=== PATIENT | female | born 1980 | race Caucasian/White ===

== ENCOUNTER 2016-11-06 15:40 | Inpatient (IN) | payer OTHER ==
[2016-11-06] MEDS ORDERED: TUBERCULIN PPD 5 TU/0.1ML SYRINGE (IN PATIENT USE ONLY) ID ONE (16:16)
[2016-11-06] MEDS ORDERED: DINOPROSTONE 10 MG VAGINAL SUPPOSITORY VG ONE (16:19)
--- NOTE | 2016-11-06 16:39 | HP ---
Past Medical History - Primary Care Physician PCP:: Ilsa Rodriguez - Admission Chief Complaint: induction due to AMA and Unilateral hydronephrosis History of Present Illness: 36 yo admitted for induction of labor due to AMA & unilateral hydronephrosis History Source: Patient - Past Medical History ...: 3 ...Para: 1 ...Spon : 1 ...EDC by Sono: 11/13/16 - Past Surgical History Past Surgical History: Yes: None Hx Myomectomy: No Hx Transabdominal Cerclage: No - Smoking History Smoking history: Never smoked Have you smoked in the past 12 months: No - Alcohol/Substance Use Hx Alcohol Use: No History of Substance Use: reports: None - Social History Usual Living Arrangement: Yes: With Spouse History of Recent Travel: No Home Medications - Allergies Allergies/Adverse Reactions: Allergies Allergy/AdvReac Type Severity Reaction Status Date / Time No Known Allergies Allergy Verified 11/24/15 16:34 - Home Medications Home Medications: Ambulatory Orders Vitamins (Sjr) - 1 tab PO DAILY 11/06/16 Ibuprofen [Motrin -] 600 mg PO QID PRN #28 tablet 11/07/16 Review of Systems - Review of Systems Constitutional: reports: No Symptoms Eyes: reports: No Symptoms HENT: reports: No Symptoms Neck: reports: No Symptoms Cardiovascular: reports: No Symptoms Respiratory: reports: No Symptoms Gastrointestinal: reports: No Symptoms Genitourinary: reports: No Symptoms Breasts: reports: No Symptoms Reported Musculoskeletal: reports: No Symptoms Integumentary: reports: No Symptoms Neurological: reports: No Symptoms Endocrine: reports: No Symptoms Hematology/Lymphatic: reports: No Symptoms Psychiatric: reports: No Symptoms Physical Exam - Maternity Constitutional: Yes: Well Nourished, No Distress Neck: Yes: WNL Cardiovascular: Yes: WNL, Regular Rate and Rhythm Lungs: Clear to auscultation Breast(s): Yes: WNL - Abdominal Exam/OB Fundal Height: 39 Number of Fetuses: Single Contractions: No Monitor Mode: External Category: I Accelerations: Non-Uniform Decelerations: None - Vaginal Exam/OB Vaginal Bleediing: No Dilatation (cm): closed - Physical Exam Musculoskeletal: Yes: WNL Extremities: Yes: WNL Edema: No Hemorrhage Risk Assessment - Risk Factors Risk Score: 0 Risk Level: Low Risk Problem List - Problems (1) Elderly multigravida in third trimester Code(s): O09.523 - SUPERVISION OF ELDERLY MULTIGRAVIDA, THIRD TRIMESTER (2) hydronephrosis during in third trimester, antepartum Code(s): O35.8XX0 - MATERNAL CARE FOR OTH ABNORMALITY AND DAMAGE, UNSP Assessment/Plan Elderly multigravida unilateral hydronephrosis iUP at 39 week Hx of x 1 Plan Cervidil induction notify Peds of induction - done
[2016-11-06 16:49] VITALS: BMI 32.9
[2016-11-06] MEDS: ELECTROLYTE-148 SOLN 1,000 ML IV SCH (17:40)
[2016-11-06 17:44] LABS: BASOPHIL 0.2 % (0-2.0); EOSINOPHIL 0.1 % (0-4.5); MCH 30.6 pg (25.7-33.7); MCHC 33.5 g/dl (32.0-36.0); MEAN CELL VOLUME 91.5 fl (80-96); MEAN PLT VOLUME 10.3 fl (7.5-11.1); NEUTROPHILS 77.1 % (42.8-82.8); PLATELET COUNT 180 K/MM3 (134-434); RDW 13.7 % (11.6-15.6); WHITE BLOOD COUNT 8.7 K/mm3 (4.0-10.0)
[2016-11-06 17:50] LABS: CALCIUM 8.7 mg/dL (8.5-10.1); COCKROFT - GAULT 126.225; CREATININE 0.9 mg/dL (0.55-1.02)
[2016-11-06 17:59] LABS: INR 0.91 (0.82-1.09)
[2016-11-07] MEDS: ELECTROLYTE-148 SOLN 1,000 ML IV SCH ×2 (01:10→08:44)
[2016-11-07] MEDS ORDERED: BUTORPHANOL TARTRATE 1 MG/ML VIAL IVPB ONE (01:20)
--- NOTE | 2016-11-07 11:35 | CONSULT ---
Consultation: REQUESTING PROVIDER: Dr. Rodriguez CONSULT REQUEST: We have been asked to medically evaluate this patient for chest pain. HISTORY OF PRESENT ILLNESS: 36 year old woman with no significant PMH, currently 39 weeks , in labor, developed mid sternal chest pain while in bed this am. The pain was worse with movement of the left arm, and also was worse when the patient got up to use the bathroom. She states the pain is sharp , focal in the midline over the anterior, lower sternum. During the more severe episode, the patient had repeat VS by the nurse, with HR 70's, BP 120/80 , O2 sat 100% room air. There is no cough, no pain with breathing, no fever, no chills, no leg swelling or pain, no URI sx. No hx of blood clots. REVIEW OF SYSTEMS: CONSTITUTIONAL: Absent: fever, chills, diaphoresis, generalized weakness, malaise, loss of appetite, weight change HEENT: Absent: rhinorrhea, nasal congestion, throat pain, throat swelling, difficulty swallowing, mouth swelling, ear pain, eye pain, visual changes CARDIOVASCULAR: Present: chest pain as per HPI Absent: syncope, palpitations, irregular heart rate, lightheadedness, peripheral edema RESPIRATORY: Absent: cough, shortness of breath, dyspnea with exertion, orthopnea, wheezing, stridor, hemoptysis GASTROINTESTINAL: Absent: nausea, vomiting, diarrhea, constipation, melena, hematochezia GENITOURINARY: Present: abdominal pain, abdominal distension consistent with , in active labor Absent: dysuria, frequency, urgency, hesitancy, hematuria, flank pain, genital pain MUSCULOSKELETAL: Absent: myalgia, arthralgia, joint swelling, back pain, neck pain SKIN: Absent: rash, itching, pallor HEMATOLOGIC/IMMUNOLOGIC: Absent: easy bleeding, easy bruising, lymphadenopathy, frequent infections ENDOCRINE: Absent: unexplained weight gain, unexplained weight loss, heat intolerance, cold intolerance NEUROLOGIC: Absent: headache, focal weakness or paresthesias, dizziness, unsteady gait, seizure, mental status changes, bladder or bowel incontinence PSYCHIATRIC: Absent: anxiety, depression, suicidal or homicidal ideation, hallucinations. PHYSICAL EXAMINATION Vital Signs - 24 hr 11/06/16 11/06/16 11/06/16 16:40 17:00 18:00 Temperature 98.7 F 98.2 F Pulse Rate 102 H 95 H 98 H Respiratory 20 20 20 Rate Blood Pressure 135/71 122/56 126/59 11/06/16 11/06/16 11/06/16 19:00 20:00 21:00 Temperature Pulse Rate 79 80 82 Respiratory 20 16 18 Rate Blood Pressure 138/68 123/65 124/62 11/06/16 11/06/16 11/07/16 22:00 23:00 00:00 Temperature 98.2 F 97.8 F Pulse Rate 90 82 70 Respiratory 18 18 20 Rate Blood Pressure 138/68 136/69 119/69 11/07/16 11/07/16 11/07/16 01:00 02:00 04:00 Temperature 98.1 F Pulse Rate 84 68 72 Respiratory 20 20 16 Rate Blood Pressure 127/72 123/79 126/78 11/07/16 11/07/16 11/07/16 05:00 06:00 07:00 Temperature 98.3 F Pulse Rate 72 78 70 Respiratory 16 20 20 Rate Blood Pressure 128/70 131/72 136/73 11/07/16 11/07/16 11/07/16 08:00 09:00 10:00 Temperature 97.4 F L 98.8 F Pulse Rate 89 82 78 Respiratory 20 20 20 Rate Blood Pressure 121/78 125/79 119/75 11/07/16 11:00 Temperature Pulse Rate 69 Respiratory 20 Rate Blood Pressure 119/79 GENERAL: Awake, alert, and fully oriented, in no acute distress. Intermittent labor pains, come and go. Chest pain has currently resolved. HEAD: Normal with no signs of trauma. EYES: Pupils equal, round and reactive to light, extraocular movements intact, sclera anicteric, conjunctiva clear. No lid lag. EARS, NOSE, THROAT: Ears normal, nares patent, oropharynx clear without exudates. Moist mucous membranes. NECK: Normal range of motion, supple without lymphadenopathy, JVD, or masses. LUNGS: Breath sounds equal, clear to auscultation bilaterally. No wheezes, and no crackles. No accessory muscle use. No discomfort with deep inspiration. HEART: Regular rate and rhythm, normal S1 and S2 without murmur, rub or gallop. ABDOMEN: Soft, nontender, gravid uterus below the xiphoid, normoactive bowel sounds, no guarding, no rebound, no masses. MUSCULOSKELETAL: Normal range of motion at all joints. No bony deformities or tenderness. No CVA tenderness. Patient states movement of left arm across the chest to touch the right shoulder caused increased chest pain earlier, but that exacerbation with movement is not present currently. UPPER EXTREMITIES: 2+ pulses, warm, well-perfused. No cyanosis. No clubbing. Cap refill <2 seconds. No peripheral edema. LOWER EXTREMITIES: 2+ pulses, warm, well-perfused. No calf tenderness. Trace pretibial edema. NEUROLOGICAL: Cranial nerves normal. Normal speech. PSYCHIATRIC: Cooperative. Good eye contact. Appropriate mood and affect. SKIN: Warm, dry, normal turgor, no rashes or lesions noted. Laboratory Results - last 24 hr 11/06/16 11/06/16 11/06/16 17:00 17:00 17:00 WBC 8.7 RBC 4.30 Hgb 13.2 Hct 39.3 MCV 91.5 MCHC 33.5 RDW 13.7 Plt Count 180 D MPV 10.3 Neutrophils % 77.1 Lymphocytes % 15.4 D Monocytes % 7.2 Eosinophils % 0.1 Basophils % 0.2 INR 0.91 PTT (Actin FS) 24.0 L Sodium 138 Potassium 3.8 Chloride 104 Carbon Dioxide 21 D Anion Gap 13 BUN 15 Creatinine 0.9 D Random Glucose 78 D Calcium 8.7 RPR Titer Blood Type Antibody Screen 11/06/16 11/06/16 17:00 17:00 WBC RBC Hgb Hct MCV MCHC RDW Plt Count MPV Neutrophils % Lymphocytes % Monocytes % Eosinophils % Basophils % INR PTT (Actin FS) Sodium Potassium Chloride Carbon Dioxide Anion Gap BUN Creatinine Random Glucose Calcium RPR Titer Nonreactive Blood Type A POSITIVE Antibody Screen Negative Active Medications Generic Name Dose Route Start Last Admin Trade Name Freq PRN Reason Stop Dose Admin Parenteral Electrolytes 1,000 mls @ 125 mls/hr 11/06/16 16:30 11/07/16 08:44 Plasma-Lyte 148 - IV 125 mls/hr ASDIR TIRSO Administration EKG: NSR at 71, nl axis and intervals, no acute ST or T wave changes, normal EKG. ASSESSMENT/PLAN: Chest pain in the lower sternal region, now resolved, was worsened with arm movement, more musculoskeletal in nature. EKG and exam are normal, lungs are clear, pain is now resolved. Could give acetaminophen if pain recurs. No suggestion of serious etiology for the pain. Please reconsult if more severe symptoms develop or if significant changes in vital signs with further chest pain. Dispo: Thank you for this consultative opportunity. Visit type - Emergency Visit Emergency Visit: No - New Patient This patient is new to me today: Yes Date on this admission: 11/07/16 - Critical Care Critical Care patient: No
[2016-11-07] MEDS ORDERED: BUTORPHANOL TARTRATE 1 MG/ML VIAL IVPUSH PRN (13:08)
--- NOTE | 2016-11-07 15:04 | EKG ---
Test Reason : Blood Pressure : / mmHG Vent. Rate : 071 BPM Atrial Rate : 071 BPM P-R Int : 140 ms QRS Dur : 068 ms QT Int : 364 ms P-R-T Axes : 058 073 037 degrees QTc Int : 395 ms NORMAL SINUS RHYTHM NORMAL ECG NO PREVIOUS ECGS AVAILABLE Confirmed by BARRON APONTE, RESHMA ([id number]) on 11/07/2016 3:04:16 PM Referred By: Dina COX Confirmed By:RESHMA MART MD
--- NOTE | 2016-11-07 17:24 | PN ---
Delivery - Delivery Vaginal Delivery: No Problems Episiotomy/Laceration: 1st degree EBL (cc): 450 Delivery, Single - Stages of Labor Placenta: Yes: Spontaneous - Condition of Front End Developer Designer/Die Fitter Present: No Infant Gender: Female Position: OA - Feeding Plan Initial Plan: Elected not to breastfeed exclusively throughout hospitalization
[2016-11-07 17:41] LABS: ARTERIAL BLD GAS O2 SATURATION 78.9 % (90-98.9); ARTERIAL BLOOD GAS BASE EXCESS -2.8 meq/l (-2-2); ARTERIAL BLOOD GAS HCO3 21.1 meq/L (22-26); ARTERIAL BLOOD GAS pH 7.38 (7.35-7.45)
[2016-11-07 17:44] LABS: ARTERIAL BLD GAS O2 SATURATION 41.6 % (90-98.9); ARTERIAL BLOOD GAS BASE EXCESS -1.1 meq/l (-2-2); ARTERIAL BLOOD GAS HCO3 24.6 meq/L (22-26); ARTERIAL BLOOD GAS pH 7.34 (7.35-7.45)
[2016-11-07 17:46] LABS: ARTERIAL BLOOD GAS PO2 38.1 mmHg (80-100)
[2016-11-07 17:47] LABS: ARTERIAL BLOOD GAS PO2 21.9 mmHg (80-100)
[2016-11-07] MEDS ORDERED: D5W-LR W/ 20 UNITS OXYTOCIN 1,000 ML IV ONE (18:35)
[2016-11-07] MEDS ORDERED: BENZOCAINE 28 GM HEMORRHOIDAL OINTMENT PR PRN (20:18)
[2016-11-07] MEDS ORDERED: BENZOCAINE 20% 57 GM BOTTLE TP PRN (20:18)
[2016-11-07] MEDS ORDERED: BISACODYL 10 MG SUPP.RECT RC PRN (20:18)
[2016-11-07] MEDS ORDERED: METHYLERGONOVINE MALEATE 0.2 MG/1 ML AMP IM PRN (20:18)
[2016-11-07] MEDS ORDERED: oxyCODONE HCL 5 MG TABLET PO PRN (20:18)
[2016-11-07] MEDS ORDERED: WITCH HAZEL 50% (TUCKS) 40 PAD/JAR PAD TP PRN (20:18)
--- NOTE | 2016-11-07 20:23 | DS ---
Physical Exam-PLASTER HELPER Vital Signs: Vital Signs Temperature 98.1 F 11/07/16 18:00 Pulse Rate 85 11/07/16 18:00 Respiratory Rate 20 11/07/16 18:00 Blood Pressure 129/68 11/07/16 18:00 O2 Sat by Pulse Oximetry (%) 100 11/07/16 18:00 Constitutional: Yes: Well Nourished, No Distress Cardiovascular: Yes: WNL Respiratory: Yes: WNL Gastrointestinal: Yes: WNL ....Post : Yes: Uterus firm, Uterus non-tender Breast(s): Yes: Gynecomastia Musculoskeletal: Yes: WNL Extremities: Yes: WNL Neurological: Yes: WNL, Alert, Oriented Labs: CBC, BMP 11/06/16 17:00 11/06/16 17:00 Delivery - Delivery Vaginal Delivery: No Problems Type of Anesthesia: None Episiotomy/Laceration: 1st degree EBL (cc): 450 Delivery, Single - Stages of Labor Date 1st Stage Initiatied: 11/07/16 Time 1st Stage Initiated: 04:00 Date 2nd Stage Initiated: 11/07/16 Time 2nd Stage Initiated: 16:48 Date of Delivery: 11/07/16 Time of Delivery: 16:59 Time Placenta Delivered: 17:05 Placenta: Yes: Spontaneous - Condition of Infant Filter Helper/Associate Accountant Present: No Infant Gender: Female Weight: 6 lb 8 oz Position: OA Total Hours ROM (Hrs/Mins): 1hr 45min - 1 Minute Total Score: 9 5 Minutes Total Score: 9 - Feeding Plan Initial Plan: Elected not to breastfeed exclusively throughout hospitalization Discharge Summary Reason For Visit: INDUCTION OF LABOR Current Active Problems Elderly multigravida in third trimester (Acute) hydronephrosis during in third trimester, antepartum (Acute) Procedures: Principal: Normal vaginal delivery Condition: Good - Instructions Diet, Activity, Other Instructions: Physical activity Resume your normal everyday activity as tolerated no heavy lifting or exercise until seen by your surgeon. You may walk unlimited chioma of and climb stairs. You may resume driving the car when you feel safe and comfortable behind the wheel. No sexual activity as instructed. Wound care If you have a bandage, leave it on, and keep dry for 48-72 hours. After that time discard the outer bandage. If they are tapes on the skin under the out of bandage leave them in place. They will peel off in the next 7 to 10 days. Do Not Peel them off. You may shower the day after surgery. If there are tapes present on the skin, you may shower over them. Diet There are no dietary restrictions. Eat healthy, high-fiber foods. Drink 6 to 8 glasses of liquid each day. This will assist in keeping your bowels are regular. Pain management You may take Tylenol or acetaminophen or Ibuprofen (for example, Motrin, Advil etc.) from my pain prescription medication is ordered should be taken as prescribed for moderate to severe pain. Call MD for any of the following: Severe pain not relieved by medication Fever of 101 or higher Excessive bleeding or drainage on dressing Inability to urinate Referrals: Ilsa Rodriguez MD [Staff Physician] - Disposition: HOME - Home Medications Comprehensive Discharge Medication List: Ambulatory Orders Vitamins (Sjr) - 1 tab PO DAILY 11/06/16 Ibuprofen [Motrin -] 600 mg PO QID PRN #28 tablet 11/07/16
[2016-11-07] MEDS: IBUPROFEN 600 MG TABLET (FP) PO PRN (20:35)
[2016-11-07] MEDS: ACETAMINOPHEN 325 MG TABLET (FP) PO PRN (20:36)
[2016-11-08] MEDS: IBUPROFEN 600 MG TABLET (FP) PO PRN ×2 (03:28→16:41)
[2016-11-08] MEDS: ACETAMINOPHEN 325 MG TABLET (FP) PO PRN ×2 (03:29→16:40)
[2016-11-08 06:58] LABS: BASOPHIL 0.5 % (0-2.0); EOSINOPHIL 0.3 % (0-4.5); MCHC 33.3 g/dl (32.0-36.0); MEAN CELL VOLUME 92.8 fl (80-96); MEAN PLT VOLUME 10.7 fl (7.5-11.1); NEUTROPHILS 75.4 % (42.8-82.8); PLATELET COUNT 143 K/MM3 (134-434); RDW 13.4 % (11.6-15.6)
--- NOTE | 2016-11-08 07:35 | PN ---
Post Note - Post Date of Delivery: 11/07/16 Post Day: 1 Vital Signs: Vital Signs - 24 hr 11/07/16 11/07/16 11/07/16 08:00 09:00 10:00 Temperature 97.4 F L 98.8 F Pulse Rate 89 82 78 Respiratory 20 20 20 Rate Blood Pressure 121/78 125/79 119/75 O2 Sat by Pulse Oximetry (%) 11/07/16 11/07/16 11/07/16 11:00 12:00 13:00 Temperature Pulse Rate 69 71 80 Respiratory 20 20 20 Rate Blood Pressure 119/79 131/74 142/80 O2 Sat by Pulse Oximetry (%) 11/07/16 11/07/16 11/07/16 14:00 15:00 16:00 Temperature 97.8 F Pulse Rate 79 82 63 Respiratory 20 20 20 Rate Blood Pressure 129/72 132/80 136/65 O2 Sat by Pulse Oximetry (%) 11/07/16 11/07/16 11/07/16 17:15 17:30 17:45 Temperature Pulse Rate 79 74 86 Respiratory 20 20 20 Rate Blood Pressure 124/66 126/54 125/67 O2 Sat by Pulse 100 100 100 Oximetry (%) 11/07/16 11/07/16 11/08/16 18:00 22:54 04:00 Temperature 98.1 F 98.0 F 97.5 F L Pulse Rate 85 82 67 Respiratory 20 20 20 Rate Blood Pressure 129/68 134/74 101/55 O2 Sat by Pulse 100 Oximetry (%) Labs: Laboratory Results - last 24 hr 11/06/16 11/07/16 11/07/16 17:00 17:25 17:25 Puncture Site Md puncture Md puncture ABG pH 7.38 7.34 L ABG pCO2 at Pt Temp 36.2 46.3 H D ABG pO2 at Pt Temp 38.1 L* 21.9 L* ABG HCO3 21.1 L 24.6 ABG O2 Sat (Measured) 78.9 L 41.6 L* ABG O2 Content 18.5 9.9 L* ABG Base Excess -2.8 L -1.1 Yury Test Not applicable Not applicable Oxygen Flow Rate N/a N/a PEEP 0.0 0.0 RPR Titer Nonreactive - Subjective Subjective: No Complaints - Objective Breast: Not engorged Abdomen: Soft Uterus: Fundus firm, Non-tender Vagina: Scant lochia Extremities: Non-tender - Assessment/Plan (1) Elderly multigravida in third trimester Assessment: S/P Normal Plan: Routine Care
[2016-11-08] MEDS ORDERED: DIPHTH,PERTUSS(ACELL),TET 0.5 ML DISP.SYRIN IM ONE (10:00)
[2016-11-08] MEDS ORDERED: INFLUENZA VACCINE 60 MCG/0.5 ML (P/F DISP.SYRIN 16-17) IM ONE (14:45)
[2016-11-09] MEDS: ACETAMINOPHEN 325 MG TABLET (FP) PO PRN ×2 (01:02→07:45)
[2016-11-09] MEDS: IBUPROFEN 600 MG TABLET (FP) PO PRN ×2 (01:04→07:44)
[2016-11-09 08:37] VITALS: BP 115/74; PULSE 100; TEMP 97.4
--- NOTE | 2016-11-09 09:46 | PN ---
Post Progress Note - Subjective Subjective: Pt seen/evaluated and doing well. Having some cramping pain, but overall controlled with PO pain meds. VB/lochia rubria is moderate but stable. Pt denies light headed or dizziness. Passing flatus and tolerating regular diet. Had urinary retention yesterday, george catheter in place draining clear urine. Type of Delivery: Vital Signs: Vital Signs Temperature 97.4 F L 11/09/16 08:35 Pulse Rate 100 H 11/09/16 08:35 Respiratory Rate 20 11/09/16 08:35 Blood Pressure 115/74 11/09/16 08:35 O2 Sat by Pulse Oximetry (%) 100 11/07/16 18:00 Uterus: Yes: Fundus Firm, Fundus below umbilicus Abdomen/GI: Yes: Abdomen soft, Tolerating PO. No: Passing flatus Lochia: Yes: Rubra Lochia, amount: Small Extremities: Yes: Calves non-tender Activity: Ambulating - Labs Labs: CBC WBC 10.0 K/mm3 (4.0-10.0) 11/08/16 05:35 RBC 3.61 M/mm3 (3.60-5.2) 11/08/16 05:35 Hgb 11.2 GM/dL (10.7-15.3) D 11/08/16 05:35 Hct 33.5 % (32.4-45.2) 11/08/16 05:35 MCV 92.8 fl (80-96) 11/08/16 05:35 MCHC 33.3 g/dl (32.0-36.0) 11/08/16 05:35 RDW 13.4 % (11.6-15.6) 11/08/16 05:35 Plt Count 143 K/MM3 (134-434) D 11/08/16 05:35 MPV 10.7 fl (7.5-11.1) 11/08/16 05:35 Neutrophils % 75.4 % (42.8-82.8) 11/08/16 05:35 Lymphocytes % 14.5 % (8-40) 11/08/16 05:35 Monocytes % 9.3 % (3.8-10.2) 11/08/16 05:35 Eosinophils % 0.3 % (0-4.5) D 11/08/16 05:35 Basophils % 0.5 % (0-2.0) 11/08/16 05:35 Problem List - Problems (1) Urinary retention Code(s): R33.9 - RETENTION OF URINE, UNSPECIFIED (2) Status post normal vaginal delivery Code(s): XNM8842 - Assessment/Plan 36 y/o PPD#2 s/p normal , also with urinary retention - AFVSS - Hgb 11.2 post delivery, doing well - Continue PO pain meds, regular diet, routine care - urinary retention - s/p straight catheterization X 2 yesterday, now with george catheter replaced last evening. Urology consult requested, will await evaluation before d/c george - pt may be stable for discharge home - may need to go home with catheter , will await uro eval
--- NOTE | 2016-11-09 10:28 | CON.GU ---
Consult - History of Present Illness History of Present Illness: 36 yo female with urinary retention s/p delivery. H/o voiding difficulty also approximately 5-6yrs ago. No prior h/o surgery. Currently urine clear, george in place - Past Surgical History Past Surgical History: Yes: None - Alcohol/Substance Use Hx Alcohol Use: No History of Substance Use: reports: None - Smoking History Smoking history: Never smoked Have you smoked in the past 12 months: No - Social History History of Recent Travel: No Home Medications - Allergies Allergies/Adverse Reactions: Allergies Allergy/AdvReac Type Severity Reaction Status Date / Time No Known Allergies Allergy Verified 11/24/15 16:34 - Home Medications Home Medications: Ambulatory Orders Vitamins (Sjr) - 1 tab PO DAILY 11/06/16 Ibuprofen [Motrin -] 600 mg PO QID PRN #28 tablet 11/07/16 Physical Exam- Vital Signs: Vital Signs Temperature 97.4 F L 11/09/16 08:35 Pulse Rate 100 H 11/09/16 08:35 Respiratory Rate 20 11/09/16 08:35 Blood Pressure 115/74 11/09/16 08:35 O2 Sat by Pulse Oximetry (%) 100 11/07/16 18:00 Labs: CBC, BMP 11/08/16 05:35 11/06/16 17:00 Problem List - Problems (1) Urinary retention Assessment/Plan: october d/c home with leg bag, outpt f/u next week for voiding trial Code(s): R33.9 - RETENTION OF URINE, UNSPECIFIED
== END 2016-11-09 14:00 | disposition home or self-care (01) | DRG 775 ==
LOC: JLDR 15:40 → J3W 11-07 19:46
PROVIDERS: ADMIT Obstetrics & Gynecology; ATTEND Obstetrics & Gynecology
PROC: 10E0XZZ Delivery of Products of Conception, External Approach (ICD-10-PCS; principal; 2016-11-07)
PROC: 0HQ9XZZ Repair Perineum Skin, External Approach (ICD-10-PCS; 2016-11-07)
PROC: 0W8NXZZ Division of Female Perineum, External Approach (ICD-10-PCS; 2016-11-07)
DX: O70.0 First degree perineal laceration during delivery (principal); O09.523 Supervision of elderly multigravida, third trimester; Z3A.39 39 weeks gestation of pregnancy; R33.9 Retention of urine, unspecified; O26.893 Other specified pregnancy related conditions, third trimester; R07.9 Chest pain, unspecified; Z37.0 Single live birth
CPT/HCPCS: 36415; 36600; 59409; 80048; 82803; 85025; 85610; 85730; 86593; 86850; 86900; 86901; 90686; 90715; 93005; 93010; 93971-TC; G0008

== ENCOUNTER 2020-02-16 12:52 | Emergency (ER) | payer BC ==
[2020-02-16 13:02] VITALS: BMI 26.6
[2020-02-16] MEDS ORDERED: ACETAMINOPHEN 1000 MG/100 ML VIAL (NON FORMULARY) IVPB ONE (15:49)
[2020-02-16] MEDS ORDERED: METOCLOPRAMIDE HCL INJECTION 10 MG/2 ML VIAL IVPB ONE (15:49)
[2020-02-16] MEDS ORDERED: LACTATED RINGERS SOLUTION 1000 ML INFUS.BAG IV ONE (15:50)
--- NOTE | 2020-02-16 16:19 | PDOC ---
History of Present Illness - General Chief Complaint: Lightheaded Stated Complaint: DIZZNESS/LBP Time Seen by Provider: 02/16/20 15:38 History Source: Patient Exam Limitations: Clinical Condition - History of Present Illness Initial Comments: 02/16/20 16:12 Patient with past medical history of anxiety on lorazepam, vertigo on meclizine, and ovarian cyst present with complaint of one-week history of dizziness with spinning sensation and nausea and whole body numbness sensation from her nose to the vagina. Patient reported numbing sensation started from the nostrils and now is spread throughout her whole body and now feels numbness in the vagina area. Patient reported seeing PCP a week ago for symptoms and PCP did blood work but has not heard back from PCP and has not been able to reach PCP to follow-up. Patient was started on meclizine a week ago by PCP but reported she has been having vertigo for over 4 months now. Patient also report 1 week history of left lower flank pain radiating up to left upper back for over a week now. Denies vomiting, chest pain, shortness of breath, palpitations, fever, chills, urinary frequency, dysuria, burning with urination. Patient reported having problem with ambulation due to severe dizziness and spinning sensation. Denies any other symptoms Is this a multiple visit Asthma Patient?: No Timing/Duration: 1 week Past History - Medical History Allergies/Adverse Reactions: Allergies Allergy/AdvReac Type Severity Reaction Status Date / Time No Known Allergies Allergy Verified 02/16/20 12:59 Home Medications: Ambulatory Orders Polyethylene Glycol 3350 [Miralax (For Daily Use) -] 17 gm PO ONCE #1 bottle 02/16/20 Asthma: No Cancer: No Cardiac Disorders: No COPD: No Diabetes: No HTN: No Seizures: No Thyroid Disease: No - Reproductive History Is Patient Now?: No - Psycho-Social/Smoking History Smoking History: Never smoked Have you smoked in the past 12 months: No - Substance Abuse Hx (Audit-C & DAST Scrn) How often the patient has a drink containing alcohol: Never Score: In Men: 4 or > Positive; In Women: 3 or > Positive: 0 Screen Result (Pos requires Nsg. Audit-10AR): Negative In the last yr the pt used illegal drug/Rx for NonMed reason: No Score: Yes response is considered Positive: 0 Screen Result (Positive result requires Nsg. DAST-10): Negative Review of Systems - Review of Systems Able to Perform ROS?: Yes Is the patient limited Citizen Of [place] proficient: No Constitutional: No: Chills, Fever, Malaise HEENTM: No: Symptoms Reported, See HPI, Eye Pain, Blurred Vision, Tearing, Recent change in vision, Double Vision, Cataracts, Ear Pain, Ocular Prothesis, Ear Discharge, Nose Pain, Nose Congestion, Tinnitus, Nose Bleeding, Hearing Loss, Throat Pain, Throat Swelling, Mouth Pain, Dental Problems, Difficulty Swallowing, Mouth Swelling, Other Respiratory: No: Symptoms reported, See HPI, Cough, Orthopnea, Shortness of Breath, SOB with Exertion, SOB at Rest, Stridor, Wheezing, Productive cough, Hemoptysis, Other Cardiac (ROS): No: Symptoms Reported, See HPI, Chest Pain, Edema, Irregular Heart Rate, Lightheadedness, Palpitations, Syncope, Chest Tightness, Other ABD/GI: Yes: Symptoms Reported, See HPI, Nausea. No: Constipated, Diarrhea, Difficulty Swallowing, Poor Appetite, Rectal Bleeding, Vomiting, Indigestion, Abdominal cramping : Yes: Symptoms Reported, See HPI, Flank Pain (left flank). No: Burning, Discharge, Frequency, Urgency Musculoskeletal: Yes: Symptoms Reported, See HPI, Back Pain (left lower back) Integumentary: No: Symptoms Reported, See HPI Neurological: Yes: Symptoms reported, See HPI, Dizziness. No: Weakness, Unsteady Gait Psychiatric: Yes: Anxiety All Other Systems: Reviewed and Negative *Physical Exam - Vital Signs Last Vital Signs Temp Pulse Resp BP Pulse Ox 94 H 18 108/67 100 02/16/20 13:00 02/16/20 13:00 02/16/20 13:00 02/16/20 13:00 - Physical Exam 02/16/20 16:20 GENERAL: Well developed, well nourished. Awake and alert. No acute distress. HEENT: Normocephalic, atraumatic. PERRLA, EOMI. No conjunctival pallor. Sclera are non-icteric. Moist mucous membranes. Oropharynx is clear. NECK: Supple. Full ROM. CARDIOVASCULAR: Regular rate and rhythm. No murmurs, rubs, or gallops. Distal pulses are 2+ and symmetric. PULMONARY: No evidence of respiratory distress. Lungs clear to auscultation bilaterally. No wheezing, rales or rhonchi. ABDOMINAL: Soft. Non-tender. Non-distended. No rebound or guarding. No organomegaly. Normoactive bowel sounds. MUSCULOSKELETAL Normal range of motion at all joints. Moderate tenderness to left lower back over flank area to left upper back over paravertebral muscle of lumbar spine EXTREMITIES: No cyanosis. No clubbing. No edema. SKIN: Warm and dry. Normal capillary refill. No rashes. No jaundice. NEUROLOGICAL: Alert, awake, appropriate. Gait is normal without ataxia. PSYCHIATRIC: Cooperative. Good eye contact. Appropriate mood General Appearance: Yes: Nourished, Appropriately Dressed. No: Apparent Distress ED Treatment Course - LABORATORY CBC & Chemistry Diagram: 02/16/20 16:50 02/16/20 16:50 - RADIOLOGY Radiology Studies Ordered: Category Date Time Status SPIRAL- RENAL-STONE CT [CT] Stat CT Scan 02/16/20 16:11 Ordered Medical Decision Making - Medical Decision Making 02/16/20 16:15 Patient with past medical history of anxiety on lorazepam, vertigo on meclizine, and ovarian cyst present with complaint of one-week history of dizziness with spinning sensation and nausea and whole body numbness sensation from her nose to the vagina. Patient reported numbing sensation started from the nostrils and now is spread throughout her whole body and now feels numbness in the vagina are a. Patient reported seeing PCP a week ago for symptoms and PCP did blood work but has not heard back from PCP and has not been able to reach PCP to follow-up. Patient was started on meclizine a week ago by PCP but reported she has been having vertigo for over 4 months now. Patient also report 1 week history of left lower flank pain radiating up to left upper back for over a week now. Denies vomiting, chest pain, shortness of breath, palpitations, fever, chills, urinary frequency, dysuria, burning with urination. Patient reported having problem with ambulation due to severe dizziness and spinning sensation. Denies any other symptoms Exam significant for patient not wanting to get up from sitting position due to feeling dizzy . Mild subjective left flank tenderness. No abdominal ten derness. Normal cardio and lung exam. Normal neuro exam. Patient in no acute apparent distress. Patient symptoms likely vertigo with anxiety with possible left flank pain from musculoskeletal or urinary symptoms. CBC, chemistry lab ordered. Reglan 10 mg IV, lactated Ringer's IV hydration ordered for dizziness. Meclizine ordered for vertigo. Spiral CT ordered to rule out kidney stones. UA and urine culture ordered to rule out cystitis. 02/16/20 19:18 CBC and chemistry lab unremarkable.. Patient reported improvement of dizziness and nausea with Reglan, meclizine. Patient asking to be discharged as she felt better. Patient pending spiral CT and advised she should be discharged after CT result. 02/16/20 19:[address] shows no acute abnormality or kidney stone exam moderate stool. Patient asymptomatic now requested to be discharged. Patient stable for discharge on MiraLAX for constipation with advised to continue home meclizine as needed for vertigo with neurology follow-up. Patient also advised to follow-up with PCP Discharge - Discharge Information Problems reviewed: Yes Clinical Impression/Diagnosis: Vertigo, Malaise, Flank pain Constipation Qualifiers: Constipation type: unspecified constipation type Qualified Code(s): K59.00 - Constipation, unspecified Condition: Improved Disposition: HOME - Admission No - Additional Discharge Information Prescriptions: Polyethylene Glycol 3350 [Miralax (For Daily Use) -] 17 gm PO ONCE #1 bottle - Follow up/Referral Referrals: Akhil Day MD [Staff Physician] - - Patient Discharge Instructions Patient Printed Discharge Instructions: DI for Vertigo Additional Instructions: Your blood work is normal. Your CAT scan shows no kidney stone but shows moderate stool which you have been prescribed MiraLAX to help with constipation. Take home meclizine medication as prescribed for vertigo. Follow-up referred neurology for vertigo. Follow-up with your primary care Jackson anlisis de yumiko es normal. Jackson tomografa computarizada no muestra clculos renales hermilo muestra heces moderadas que le king recetado MiraLAX para ayudar con el estreimiento. Llvese a casa la medicacin de meclizina prescrita para el vrtigo. Seguimiento de neurologa referida por vrtigo. Seguimiento con jackson atencin primaria - Post Discharge Activity
[2020-02-16] MEDS ORDERED: METOCLOPRAMIDE HCL INJECTION 10 MG/2 ML VIAL ONE (16:38)
[2020-02-16] MEDS ORDERED: MECLIZINE HCL 25 MG TABLET (FP) PO ONE (16:40)
[2020-02-16 17:15] LABS: BASO % 0.6 % (0-2.0); EOS % 0.2 % (0-4.5); HEMATOCRIT 41.7 % (32.4-45.2); HEMOGLOBIN 13.9 GM/dL (10.7-15.3); LYMPH % 21.4 % (8-40); MCH 31.1 pg (25.7-33.7); MCHC 33.3 g/dl (32.0-36.0); MEAN CELL VOLUME 93.5 fl (80-96); MEAN PLT VOLUME 9.6 fl (7.5-11.1); MONO % 5.5 % (3.8-10.2); NEUT % 72.3 % (42.8-82.8); PLATELET COUNT 243 K/MM3 (134-434); RBC 4.46 M/mm3 (3.60-5.2); RDW 12.4 % (11.6-15.6); WHITE BLOOD COUNT 7.3 K/mm3 (4.0-10.0)
[2020-02-16 17:34] LABS: ALBUMIN 4.4 g/dl (3.4-5.0); BILIRUBIN,TOTAL 0.3 mg/dL (0.2-1); BLOOD UREA NITROGEN 9.8 mg/dL (7-18); CALCIUM 9.4 mg/dL (8.5-10.1); CREATININE 0.7 mg/dL (0.55-1.3); POTASSIUM 3.9 mmol/L (3.5-5.1); TOT PROT 8.3 g/dl (6.4-8.2)
[2020-02-16 20:23] VITALS: BP 110/59; PULSE 78; TEMP 98.6
== END 2020-02-16 20:23 | disposition home or self-care (01) ==
LOC: JER 12:52
PROC: 3E0333Z Introduction of Anti-inflammatory into Peripheral Vein, Percutaneous Approach (ICD-10-PCS; principal; 2020-02-16)
PROC: 3E033GC Introduction of Other Therapeutic Substance into Peripheral Vein, Percutaneous Approach (ICD-10-PCS; 2020-02-16)
DX: H81.4 Vertigo of central origin (principal); R42 Dizziness and giddiness; K59.00 Constipation, unspecified
CPT/HCPCS: 36415; 74176-TC; 80053; 84443; 84703; 85025; 99283-25; J0131